=== PATIENT | male | born 1975 | race Caucasian/White ===

== ENCOUNTER 2019-11-30 06:10 | Day surgery (SDC) | payer BC ==
[~2019-11-30] VITALS: Ht 175.3 cm; Wt 144.1 kg
--- NOTE | 2019-11-30 08:15 | NUR ---
11/30/19 0815 Sue Nelson 0808-PATIENT ARRIVED TO PACU ON 6L MASK RR EVEN. SR REACTIVE TO VERBAL STIMULI SLIGHTLY OPENING EYES ORIENTED TO PACU VERY DROWSY. PATIENT MOVING LOWER EXTREMITIES APPEARS TO BE RESTLESS LEGS. IVF INFUSING. DRESSING TO RIGHT CHEST CDI.
[2019-11-30] MEDS ORDERED: ACETAMINOPHEN500 MG PO (08:20)
[2019-11-30] MEDS ORDERED: IBUPROFEN600 MG PO (08:20)
--- NOTE | 2019-12-01 08:25 | OR ---
[facility] [address] [place], [place] [address] Signed DATE OF OPERATION: 11/30/2019 SURGEON: Emi Loza MD DATE OF PROCEDURE: 11/30/2019 PREOPERATIVE DIAGNOSES: 1. Morbid obesity. BMI 54. 2. Deep soft tissue mass, right anterior chest wall, infraclavicular area. POSTOPERATIVE DIAGNOSES: 1. Morbid obesity. BMI 54. 2. Deep soft tissue mass, right anterior chest wall, infraclavicular area. 3. Probable lipoma 5 cm. PROCEDURE: Excision of deep soft tissue mass of right anterior chest wall 5 cm (subfascial). ANESTHESIA: Local with monitored anesthesia care, Marcaine 0.25% with epinephrine 11 mL (Radha Crabtree sedation) INDICATION: This morbidly obese 44-year-old white man is a patient of Didier Burns PA-C of [facility]. He is noted to have a soft tissue mass in the superior aspect of the anterior chest wall inferior to the clavicle. It is about 5 cm in size clinically and rather deep. The patient is quite morbidly obese with a BMI of nearly 50. He weighs over 317 pounds. He has reactive airways disease and sleep apnea for which he uses an apnea device. He is admitted to undergo excision of the mass as it is increasing in size and symptomatic to him. Most likely it represents a lipoma. The risks of bleeding, infection, cosmetic deformity, and other unforeseen complications related to surgery were reviewed with him. He understands and wished to proceed. FINDINGS: The lesion was well circumscribed and discrete and beneath the fascial layer, not too far from the pectoralis muscle itself. It was about 5 cm in size and was excised fully. There were no other findings of concern. It was clinically consistent with lipoma. Electronically Signed By: EMI LOZA MD 12/01/19 0825 PATIENT NAME: JADA PEARCE OPERATIVE REPORT DATE OF : 73 REPORT #: [id number] PHYSICIAN: EMI LOZA MD PCP: DIDIER BURNS PA-C REPORT IS CONFIDENTIAL AND NOT TO BE RELEASED WITHOUT AUTHORIZATION [facility] [address], [place] [address] Signed DESCRIPTION OF PROCEDURE: The patient was placed in a supine position, given intravenous sedation by the gusset ripper. The right chest wall was clipped and prepared with a Betadine solution and draped sterilely. 0.25% Marcaine with epinephrine was injected locally in a transverse configuration directly over the mass. A transverse incision was made with a #15 blade. Dissection was carried through the subcutaneous tissue with electrocautery for hemostatic benefit. Ultimately, a capsule consistent with a benign lipoma was identified. This was bluntly from the surrounding soft tissue and extended down to the pectoralis fascia essentially. This was excised completely. Electrocautery was used for hemostasis. It was consistent with a lipoma. It was passed for pathology. The wound was closed with interrupted 2-0 Vicryl in a running subcuticular 3-0 Vicryl for the skin. Steri-Strips were applied as was a silver sponge dressing and the patient was allowed to emerge from sedation and taken to recovery room in good condition having suffered no complication. ESTIMATED BLOOD LOSS: Minimal. Emi Loza MD JM/MODL /[id number] cc: DIDIER BURNS PA-C Copies: ~ Electronically Signed By: EMI LOZA MD 12/01/19 0825 PATIENT NAME: JADA PEARCE OPERATIVE REPORT DATE OF : 73 REPORT #: [id number] PHYSICIAN: EMI LOZA MD PCP: DIDIER BURNS PA-C REPORT IS CONFIDENTIAL AND NOT TO BE RELEASED WITHOUT AUTHORIZATION
--- NOTE | 2019-12-02 12:56 | PATH ---
[facility] [address] [place], [place] [address] Signed SPECIMEN(S): A RIGHT CHEST WALL SPECIMEN SOURCE: A. RIGHT CHEST WALL CLINICAL HISTORY: Right chest wall soft tissue mass, right superior pectoral excision. FINAL PATHOLOGIC DIAGNOSIS: Soft tissue, right chest wall, excision: - Mature fibroadipose tissue, consistent with lipoma. NAL:cml:C2NR MICROSCOPIC EXAMINATION: Histologic sections of all submitted blocks are examined by light microscopy. These findings, together with the gross examination, support the pathologic diagnosis. GROSS DESCRIPTION: The specimen, labeled "TC," and designated on the requisition "chest wall soft tissue mass, right superior pectoral," is received in formalin and consists of an unoriented, thinly encapsulated, yellow, rubbery, previously incised, 5.3 x 4.1 x 2.2 cm mass. The external surface is inked blue and the specimen is cross-sectioned to reveal yellow, lobulated, homogenous tissue. Asbestos Wire Finisher sections are submitted in one cassette (A1). AI (under the direct supervision of a pathologist) The Gross Description was prepared using a voice recognition system. The report was reviewed for accuracy; however, sound-alike word errors, addition and/or deletions may occur. If there is any question about this report, please contact Client Services. PERFORMING LABORATORY: The technical component was performed by [facility], [address] [place] [id number] (Any Commodity Buyer: Yanira Ford MD; CLIA# [id number]). [facility], [address] [address] (CLIA# [id number]). Diagnostician: Tara Farnsworth MD Pathologist PATIENT NAME: JADA PEARCE PATHOLOGY DATE OF : 73 REPORT #: [id number] PHYSICIAN: [facility] PCP: DIDIER BURNS PA-C REPORT IS CONFIDENTIAL AND NOT TO BE RELEASED WITHOUT AUTHORIZATION [address] [address] Signed Electronically Signed 12/02/2019 Copies: ~ PATIENT NAME: JADA PEARCE PATHOLOGY DATE OF : 73 REPORT #: [id number] PHYSICIAN: [facility] PCP: DIDIER BURNS PA-C REPORT IS CONFIDENTIAL AND NOT TO BE RELEASED WITHOUT AUTHORIZATION
== END 2019-11-30 09:00 | disposition home or self-care (01) ==
LOC: OPS 06:10 → DS 06:10 → OPS 06:45
PROVIDERS: Surgery
PROC: 0JB60ZZ Excision of Chest Subcutaneous Tissue and Fascia, Open Approach (ICD-10-PCS; principal; 2019-11-30 06:45)
DX: D17.1 Benign lipomatous neoplasm of skin and subcutaneous tissue of trunk (principal); J45.909 Unspecified asthma, uncomplicated; G47.30 Sleep apnea, unspecified; E66.01 Morbid (severe) obesity due to excess calories; Z68.43 Body mass index [BMI] 50.0-59.9, adult; Z88.7 Allergy status to serum and vaccine
CPT/HCPCS: 00400; J0690; J1644; J1885; J2001; J2250; J2405; J2704; J7121